=== PATIENT | female | born 1980 | race Caucasian/White ===

== ENCOUNTER → 2020-06-30 | Outpatient (CLI) | payer OTHER, MEDICAID | LOC: M.ULTRA 06-25 10:37 | PROVIDERS: ATTEND Nurse Practitioner Family | DX: R10.84 Generalized abdominal pain (principal); R11.2 Nausea with vomiting, unspecified; Z90.49 Acquired absence of other specified parts of digestive tract ==

== ENCOUNTER → 2020-07-23 | Outpatient (CLI) | payer OTHER, MEDICAID | LOC: M.NUC 06:57 | PROVIDERS: ATTEND Internal Medicine Gastroenterology | DX: U07.1 COVID-19 (principal); R11.2 Nausea with vomiting, unspecified ==

== ENCOUNTER → 2020-10-20 | Outpatient (CLI) | payer OTHER, MEDICAID | LOC: M.RAD 11:07 | PROVIDERS: ATTEND Nurse Practitioner Family | DX: M79.601 Pain in right arm (principal) ==

== ENCOUNTER → 2020-12-24 | Outpatient (CLI) | payer OTHER, MEDICAID | LOC: M.RAD 10:14 | PROVIDERS: ATTEND Nurse Practitioner Family | DX: Z12.31 Encounter for screening mammogram for malignant neoplasm of breast (principal) ==

== ENCOUNTER → 2021-01-04 | Outpatient (CLI) | payer OTHER, MEDICAID | LOC: M.ULTRA 13:00 | PROVIDERS: ATTEND Radiology Diagnostic Radiology | DX: R92.8 Other abnormal and inconclusive findings on diagnostic imaging of breast (principal) ==

== ENCOUNTER → 2021-04-14 | Outpatient (CLI) | payer OTHER, MEDICAID | LOC: M.ULTRA 12:35 | PROVIDERS: ATTEND Nurse Practitioner Family | DX: R22.1 Localized swelling, mass and lump, neck (principal) ==

== ENCOUNTER → 2021-12-30 | Outpatient (CLI) | payer OTHER, MEDICAID | LOC: M.ULTRA 14:35 | PROVIDERS: ATTEND Nurse Practitioner Family | DX: M79.671 Pain in right foot (principal) ==

== ENCOUNTER 2022-01-22 15:59 | Emergency (ER) | payer OTHER, MEDICAID ==
[~2022-01-22] VITALS: Ht 162.6 cm; Wt 92.5 kg
[2022-01-22] MEDS ORDERED: SYNTHROID75 MC1 PO (16:15)
[2022-01-22] MEDS ORDERED: MOBIC7.5 MG PO (16:15)
[2022-01-22] MEDS ORDERED: BENTYL 10 MG CA10 M1 PO (16:27)
[2022-01-22] MEDS ORDERED: ZOFRAN ODT4 MG DISSOLVE (16:27)
[2022-01-22 16:40] VITALS: BP 146/82
== END 2022-01-22 16:40 | disposition home or self-care (01) ==
LOC: M.ERS 15:59
DX: R11.2 Nausea with vomiting, unspecified (principal); R19.7 Diarrhea, unspecified; M19.90 Unspecified osteoarthritis, unspecified site; E03.9 Hypothyroidism, unspecified; Z90.49 Acquired absence of other specified parts of digestive tract; Z88.8 Allergy status to other drugs, medicaments and biological substances

== ENCOUNTER → 2022-01-23 | Emergency (ER) | payer OTHER, MEDICAID ==
[~2022-01-23] VITALS: Ht 162.6 cm; Wt 91.6 kg
[~2022-01-23] MED LIST: BENTYL 10 MG CA10 M1 PO; MOBIC7.5 MG PO; SYNTHROID75 MC1 PO; ZOFRAN ODT4 MG DISSOLVE
--- NOTE | ~2022-01-23 | EKG ---
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
[2022-01-23 21:35] VITALS: BP 142/96
[2022-01-24 03:07] LABS: CREATININE 0.8 mg/dL (0.6-1.3)
[2022-01-24 03:08] LABS: ALBUMIN 3.2 g/dL (3.4-5.0); CALCIUM 8.6 mg/dL (8.5-10.1); TOTAL BILIRUBIN 0.4 mg/dL (<0.1-1.0)
[2022-01-24 03:10] LABS: HEMATOCRIT 41.6 % (37.0-47.0); HEMOGLOBIN 13.3 gm/dL (12.0-15.0); MCH 27.2 pg (26.0-34.0); MCHC 32.1 g/dL (28.0-37.0); MCV 84.6 fL (80.0-100.0); MPV 8.1 fl. (7.2-11.1); PLATELET COUNT* 248 thou/uL (150-400); RBC 4.91 mil/uL (4.20-5.00); RDW-CV 13.8 % (10.5-14.5); WBC 10.3 thou/uL (4.0-11.0)
[2022-01-24 03:11] LABS: ABSOLUTE EOSINOPHILS 0.1 thou/uL (0.0-0.7); ABSOLUTE MONOCYTES 0.8 thou/uL (0.0-1.2); ABSOLUTE NEUTROPHILS 8.5 thou/uL (1.6-8.1); BASOPHILS 0.3 %; EOSINOPHILS 0.5 %; LYMPHOCYTES 9.3 %; MONOCYTES 7.4 %; PLATELET ESTIMATE ADEQUATE; POLYS 82.5 %
== END ==
LOC: M.ERS 21:24
PROVIDERS: Physician Assistant Medical
DX: K52.9 Noninfective gastroenteritis and colitis, unspecified (principal); R11.2 Nausea with vomiting, unspecified; M19.90 Unspecified osteoarthritis, unspecified site; Z90.49 Acquired absence of other specified parts of digestive tract; Z86.16 Personal history of COVID-19